=== PATIENT | female | born 2000 | race Caucasian/White ===

== ENCOUNTER → 2023-08-04 15:07 | Outpatient (BNVA) | payer OTHER, BC, SELFPAY | PROVIDERS: PCP Family Medicine; Visit Provider Family Medicine | DX: N92.6 Irregular menstruation, unspecified (principal); F98.8 Other specified behavioral and emotional disorders with onset usually occurring in childhood and adolescence; Z34.90 Encounter for supervision of normal pregnancy, unspecified, unspecified trimester | CPT/HCPCS: 81025 ==

== ENCOUNTER → 2023-08-25 15:35 | Outpatient (BNVA) | payer OTHER, BC, SELFPAY | PROVIDERS: PCP Family Medicine; Visit Provider Family Medicine | DX: Z34.90 Encounter for supervision of normal pregnancy, unspecified, unspecified trimester (principal); R53.83 Other fatigue | CPT/HCPCS: 80307; 81000; 81025; 84144; 84443; 84702; 85025; 86592; 86705; 86706; 86762; 86850; 86900; 87086; 87340; 87389; 87491; 87591; 87624; 87806 ==

== ENCOUNTER → 2023-09-23 15:04 | Outpatient (BNVA) | payer OTHER, BC, SELFPAY | PROVIDERS: PCP Family Medicine; Visit Provider Family Medicine | DX: Z34.00 Encounter for supervision of normal first pregnancy, unspecified trimester (principal); R30.0 Dysuria | CPT/HCPCS: 87086 ==

== ENCOUNTER 2023-11-10 14:27 | Outpatient (CLI) | payer OTHER, SELFPAY ==
--- NOTE | 2023-11-10 15:00 | US_ITS ---
WS: [id number] OBSTETRICAL ULTRASOUND COMPLETE HISTORY: Anatomy scan. COMPARISON: None available. Single intrauterine gestation in Cephalic presentation. Variable during the examination but cephalic at the end. Cervix is Closed and normal length. Cervical length is 3.7 cm. Normal amount of amniotic fluid surrounds the fetus. Placenta: Anterior, no previa or abruption. Placenta grade 1 Heart: 147 BPM. Four chambers are identified. RIGHT and LEFT outflow tracts are unremarkable. Anatomy: Intracranial structures and spine are normal. kidneys, stomach and urinary bladd er are unremarkable. Abdominal wall, three-vessel cord and cord insertion site are normal. 4 extremities are present. profile: Not visualized due to position. Gender: Female. measurements: BPD = 4.9 cm = 21 weeks 0-day; HC = 18.4 cm = 20 weeks 5 days; AC = 15.4 cm = 20 weeks 4 days; FL = 3.5 cm = 21 weeks 0-day; EFW: 375.5 g. 32% Biometry is internally concordant. AGA by ultrasound: 20 weeks 6 days KINGA by ultrasound: 03/23/2024 IMPRESSION: 1. Single intrauterine gestation of 20 weeks 6 days with an KINGA of 03/23/2024. 2. Unremarkable screening survey of anatomy. profile is not visualized due to posi tion. The remaining anatomy is normal.
== END 2023-11-10 14:28 | disposition home or self-care (01) ==
LOC: RAD 14:29
PROVIDERS: PCP Family Medicine; Referring Provider Family Medicine; Visit Provider Family Medicine
DX: Z34.02 Encounter for supervision of normal first pregnancy, second trimester (principal); Z3A.20 20 weeks gestation of pregnancy
CPT/HCPCS: 76805

== ENCOUNTER 2024-03-22 23:52 | Inpatient (IN) | payer BC, SELFPAY ==
[2024-03-22 23:43] VITALS: BP 133/84; PULSE 92
[2024-03-22 23:59] VITALS: BMI 22.3
[2024-03-23] VITALS (14 sets, daily range): BP systolic 107–139; BP diastolic 59–83; PULSE 59–97; RESP 16; TEMP 36.9; O2SAT 98; BMI 22.3
[2024-03-23] MEDS: lactated ringers 1,000 ML 999 ML IV (00:10)
[2024-03-23 00:16] LABS: Basophils % 0.3 %; Eosinophils # 0.1 10^3/uL (0.0-0.8); Eosinophils % 0.5 %; Hematocrit 33.6 % (36-47); Lymphocytes # 2.1 10^3/uL (0.8-4.8); Lymphocytes % 13.8 %; Mean Corpuscular HGB Conc 31.8 g/dL (30-55); Mean Corpuscular Hemoglobin 26.7 pg (27-33); Mean Corpuscular Volume 83.8 fl (85-98); Mean Platelet Volume 11.4 fL (7.4-10.4); Monocytes # 1.1 10^3/uL (0.2-0.9); Monocytes % 6.9 %; Neutrophils # 11.83 10^3/uL (1.8-7.7); Neutrophils % 77.8 %; Nucleated Red Blood Cells % 0 %; Platelet Count 248 10^3/cmm (157-399); Red Blood Count 4.01 10^6/uL (3.85-5.65); Red Cell Distribution Width 17.6 % (12.1-15.1); White Blood Count 15.18 10^3/uL (3.29-11.43)
[2024-03-23] MEDS: metoclopramide 5 mg/mL SDV 2 mL 10 MG IVP (00:18)
[2024-03-23] MEDS: citric acid-sodium citrate 30 mL UDC PO (00:18)
[2024-03-23] MEDS: famotidine 20 mg/2 mL INJ IVP (00:19)
--- NOTE | 2024-03-23 00:30 | P.ANESUD_ITS ---
Pre-Anesthetic Update Pre-Anesthetic Assessment: Date of Surgery/Procedure: 03/29/24 Preop Sangeetha gnosis: breech Proposed Procedure: Operation Date: 03/23/24 00:30 Proposed Procedures p Section(Not Applicable) - Donald Regan MD Any changes to Pre-Anesthetic Assessment?: No Last Intake: solids @1700, liquids @2300 Labs Last 48hrs: Short CBC 03/22/24 Range/Units 23:59 WBC 15.18 H (3.29-11.43) 10^ 3/uL Hgb 10.70 L (11.27-16.99) g/ dL Hct 33.6 L (36-47) % MCV 83.8 L (85-98) fl Plt Count 248 (157-399) 10^3/c mm Neut % (Auto) 77.8 % Neut # (Auto) 11.83 H (1.8-7.7) 10^3/u L Blood Bank 03/22/24 23:59 Blood Type O Positive Rho(D) Type Rh positive Vitals: Pulse Rate 97 03/23/24 00:14 Pulse Rhythm Regular 03/22/24 23:59 Pulse Strength 3+ Normal 03/22/24 23:59 Respiratory Effort Spontaneous, Non- Labored 03/22/24 23:59 Respiratory Depth Normal 03/22/24 23:59 Respiratory Patter n Normal 03/22/24 23:59 Blood Pressure 139/83 03/23/24 00:14 Oxygen Delivery Me thod Room Air 03/22/24 23:59 Exam: Pre-Anes Outpt Exam: alert, oriented x 3 and clear to auscultation bilaterally Cardiac Studies: No Data to Display
--- NOTE | 2024-03-23 00:30 | P.ANESUD_ITS ---
Pre-Anesthetic Update Pre-Anesthetic Assessment: Date of Surgery/Procedure: 03/23/24 Preop Sangeetha gnosis: breech Proposed Procedure: Operation Date: 03/23/24 00:30 Proposed Procedures p Section(Not Applicable) - Donald Regan MD Any changes to Pre-Anesthetic Assessment?: No Last Intake: liquids @2300, solids @1700 Labs Last 48hrs: Short CBC 03/22/24 Range/Units 23:59 WBC 15.18 H (3.29-11.43) 10^ 3/uL Hgb 10.70 L (11.27-16.99) g/ dL Hct 33.6 L (36-47) % MCV 83.8 L (85-98) fl Plt Count 248 (157-399) 10^3/c mm Neut % (Auto) 77.8 % Neut # (Auto) 11.83 H (1.8-7.7) 10^3/u L Blood Bank 03/22/24 23:59 Blood Type O Positive Rho(D) Type Rh positive Vitals: Pulse Rate 97 03/23/24 00:14 Pulse Rhythm Regular 03/22/24 23:59 Pulse Strength 3+ Normal 03/22/24 23:59 Respiratory Effort Spontaneous, Non- Labored 03/22/24 23:59 Respiratory Depth Normal 03/22/24 23:59 Respiratory Patter n Normal 03/22/24 23:59 Blood Pressure 139/83 03/23/24 00:14 Oxygen Delivery Me thod Room Air 03/22/24 23:59 Exam: Pre-Anes Outpt Exam: alert, oriented x 3 and clear to auscultation bilaterally Cardiac Studies: No Data to Display
[2024-03-23] MEDS: BUPivacaine 0.5% INJ 30 mL INJECTION (00:50)
--- NOTE | 2024-03-23 02:45 | P.HP_ITS ---
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 She is scheduled to have a section at 7:00 today. Her is due to having a breech presentation baby. She been having contractions intermittently throughout the last 24 hours. They began increasingly severe and as result she came in for further evaluation. She was checked by the nurses and found to be 7 cm dilated. Present Details : 1 Para: 0 Review of Systems 2 General: Reports: 10 or more systems reviewed and unremarkable except in HPI and below Const: Reports: fatigue; Denies: fever(s) Eyes: Denies: change in vision Card: Denies: chest pain Musc: Reports: back pain Topher/Lymph: Denies: easy bruising Medications/Allergies Home Medications Medication Instructions Recorded Confirmed Last Taken Type vitamins with calcium 1 tab PO DAILY #30 tabs 08/25/23 09/23/23 Unknown Rx no.72-iron 29 mg-folic acid 1 mg tablet Allergies Allergy/AdvReac Type Severity Reaction Status Date / Time No Known Allergies Allergy Verified 08/04/23 14:55 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 PFSH: Medical History Adult attention deficit disorder Acne Surgical History No pertinent past surgical history Family History Mother No significant family history Social History Smoking and tobacco/nicotine status: never used tobacco/nicotine Alcohol intake: never Substance/Drug Use: never 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[employer] - [employer] History History History 2 1 Term 0 0 Miscarriages/Ectopic 0 Living Children 0 Care KINGA Calculator 2 Estimated Delivery Date Method Current WG Current Estimate 03/22/24 Ultrasound #1 40w 1d Other Estimates 04/09/24 LMP (Uncertain) 37w 4d Vitals/I&O/Wt Last Vital Signs Pulse 97 03/23/24 00:14 BP 139/83 03/23/24 00:14 O2 Del Method Room Air 03/22/24 23:59 Weight last 48 hrs Weight 138 lb 8 oz Physical Exam 2 Const: COMMON NORMALS: patient oriented x3 and alert HENMT: COMMON NORMALS: moist oral mucous membranes HEAD & SCALP: normal to inspection Chest: COMMONS NORMALS: normal inspection of the chest Resp: COMMON NORMALS: clear to auscultation bilaterally AUSCULTATION: clear to auscultation bilaterally Cardio: COMMON NORMALS: regular rate and regular rhythm RATE: regular rate RHYTHM: regular rhythm GI: INSPECTION: Yes normal to inspection and Yes other (Gravid) Extremity: COMMON NORMALS: normal to inspection GENERAL: Yes edema (Trace) Neuro: COMMON NORMALS: patient oriented x3, moves all extremities and no sensory deficits noted SENSORIUM/ORIENTATION: Yes alert Psych: COMMON NORMALS: mental status grossly normal Skin: COMMON NORMALS: no rashes or lesions noted GENERAL SKIN EXAM: no rashes or lesions noted Urinary Catheter Management: Ely: Cath Placed During This Visit: yes Urinary Catheter Date of Insertion: 03/23/24 Urinary Catheter Time of Insertion: 00:44 Data 03/22/24 23:59 Results Labs OB ([facility]): 2 Blood Type O Positive 03/22/24 Antibody Screen Positive 03/22/24 Hct 33.6 % (36-47) L 03/22/24 Hgb 10.70 g/dL (11.27-16.99) L 03/22/24 Rho(D) Type Rh positive 03/22/24 Plt Count 248 10^3/cmm (157-399) 03/22/24 Hep Bs Antigen Non-reactive (Nonreactive) 08/25/23 Hep B Core Total Ab Non-reactive (Nonreactive) 08/25/23 Hep Bs Antibody 3.5 (11.5-1000) L 08/25/23 Rubella IgG Antibody 222.1 IU/mL (0.0-10.0) H 08/25/23 HIV 1&2 Ab & HIV 1 Ag Non-reactive (Non-Reactiv) 08/25/23 TSH 0.78 uIU/mL (0.27-4.20) 08/25/23 C.trachomatis RNA (TMA) Not detected 08/25/23 N.gonorrhoeae RNA (TMA) Not detected 08/25/23 Chlamydia/GC Comment TNP 08/25/23 Progesterone 29.94 ng/mL 08/25/23 Ser , Semi-Qnt 021631.00 mIU/mL 08/25/23 HCG, Qual Positive (Negative) H 08/25/23 Urine Opiates Screen Negative ng/mL (Negative) 08/25/23 Ur Barbiturates Screen Negative ng/mL (Negative) 08/25/23 Ur Phencyclidine Scrn Negative ng/mL (Negative) 08/25/23 Ur Amphetamines Screen Negative ng/mL (Negative) 08/25/23 U Benzodiazepines Scrn Negative ng/mL (Negative) 08/25/23 Urine Cocaine Screen Negative ng/mL (Negative) 08/25/23 U Marijuana (THC) Screen Negative ng/mL (Negative) 08/25/23 Micro Urine Specimen 09/23/23 Pap Smear Interpret See note A 08/25/23 A&P Assessment and plan (1) 40 weeks gestation of : (2) Breech presentation: The patient had decided that she would want to proceed with a section. She was scheduled to have a later in the morning. Given the dilation we will proceed with a at this time. We discussed the risks of a C- section including the risks of bleeding, infection, and damage to intra- abdominal organs. She and her have no further questions and wished to proceed. Qualifiers: Fetus number: single or unspecified fetus Qualified Code(s): O32.1XX0 - Maternal care for breech presentation, not applicable or unspecified Attestations 2 Medical Necessity Statement*: Routine and post care Coding Level of Care Code Acute Code for Chg Fwd Diagnoses 40 weeks gestation of Z3A.40 Breech presentation, single or unspecified fetus O32.1XX0 Fetus number: single or unspecified fetus
--- NOTE | 2024-03-23 02:50 | PM.OP ---
Operative Report Date of procedure: March 23, 2024 Pre-op diagnosis: 1. 23-year-old 1 at 40 weeks estimated gestational age in active labor 2. Breech presentation Post-op diagnosis: same Procedure done: Primary low-transverse section Specimens removed/disposition: 1. Female infant with a weight of 6 pounds 1 ounces and Apgars of 8 and 9 2. Placenta with a three-vessel cord delivered intact Surgeon: Donald Regan MD Complications: None Procedure: The patient was brought back to the operating room where she was prepped and draped in usual sterile fashion. Anesthesia was found to be adequate. Approximately 20 cc of 0.5% bupivacaine were used to infused the area of the incision A lower transverse skin incision was then made with a #10 blade. I then dissected down to the underlying subcutaneous tissue until arriving at the prerectal fascia. The fascia was then nicked with the scalpel bilaterally. The fascial incisions were then carried laterally with Boykin scissors. Attention was then turned to the superior aspect of the incision which was grasped with kochers and tented up away from the underlying rectus abdominis muscles. The muscles were then dissected away from the fascia manually, and later with Boykin scissors. Attention was then turned to the inferior aspect of the incision, and the fascia was dissected away from the underlying muscle in similar fashion. The rectus abdominis muscles were then spread manually. The peritoneum was entered manually. Excellent visualization of the uterus was noted. A lower transverse uterine incision was then made with a #10 blade. Upon arriving at the intrauterine cavity, the uterine incision was then extended manually. The infant was noted to be in arnold breech position. The baby was delivered without difficulty. After delivery of the head, the mouth and nose were suctioned at the site of the incision. There was terminal meconium only. There was no nuchal cord. The remainder of the body was then delivered and placed on the abdomen. The cord was cut and clamped. The baby was then handed to the waiting nurse. The placenta was removed intact. The uterus was externalized. The intrauterine cavity was cleansed of any remaining debris. The uterine incision was reapproximated in 2 layers. The first layer was performed with 0 Vicryl in a running locked stitch. The second layer was an imbricating stitch also using 0 Vicryl. The uterus was replaced into the abdomen. The peritoneum was then irrigated with warm saline. I reexamined the uterine incision and found it to be hemostatic. The rectus abdominis muscles were then reapproximated using 0 Vicryl in a running stitch. The fascia was then reapproximated using 0 Vicryl in running stitch. The skin was reapproximated using solitario. A sterile dressing was placed. All counts were correct x2. Both the mother and baby were in stable condition.
[2024-03-23] MEDS: ketorolac 30 mg/mL INJ IVP ×3 (07:26→20:26)
[2024-03-23] MEDS: dextrose 5%-lactated ringers 1,000 ML 125 ML IV (07:34)
--- NOTE | 2024-03-23 07:49 | PC.NURSE ---
PT WAS PLACED ON FLYING CART, FLYING CART [facility]30. RN AT BEDSIDE EVERY 15 MINUTES. VITALS OBSERVED DURING THIS TIME, VITALS WERE WITHIN NORMAL LIMITS
[2024-03-23] MEDS: sodium chloride 0.9% 500 ML 999 ML IV ×3 (08:51→11:22)
[2024-03-23] MEDS: PRENATAL VIT NO.130/IRON/FOLIC 1 EACH TABLET PO (08:51)
[2024-03-23] MEDS: docusate sodium 100 mg Capsule PO ×2 (08:51→20:27)
[2024-03-23 14:37] LABS: Hematocrit 28.8 % (36-47); Mean Corpuscular HGB Conc 31.9 g/dL (30-55); Mean Corpuscular Hemoglobin 27.5 pg (27-33); Mean Platelet Volume 11.2 fL (7.4-10.4); Platelet Count 172 10^3/cmm (157-399); Red Blood Count 3.35 10^6/uL (3.85-5.65); Red Cell Distribution Width 17.7 % (12.1-15.1); White Blood Count 17.15 10^3/uL (3.29-11.43)
[2024-03-24] MEDS: HYDROcodone-acetaminophen 5-325 mg Tablet PO ×2 (02:52→09:11)
[2024-03-24 04:32] VITALS: BP 106/67; PULSE 72; RESP 16; TEMP 36.8; O2SAT 98
[2024-03-24 06:00] VITALS: BMI 22.3
--- NOTE | 2024-03-24 08:25 | PM.OBGYDC ---
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 She was noted to have a breech presentation baby and was scheduled to have a later on the same day. As result she was brought back for a . The was unremarkable. Her course was unremarkable. She was passing gas within hours of the . Her diet was advanced and she tolerated it well. Her bleeding was light. Her pain was well-controlled. There were no concerns. Information Peripartum Data: Delivery Method: Physical Exam Narrative: She is in no acute distress Lungs are clear auscultation bilaterally Her heart has a regular rate and rhythm Her fundus is below the umbilicus and firm Her dressing is clean, dry and intact Her extremities have trace edema Urinary Catheter Management: Ely: Cath Placed During This Visit: yes, but has since been removed by the nurse Reason for Continuing Indwelling Catheter: Decision to DC Catheter Urinary Catheter Date of Insertion: 03/23/24 Urinary Catheter Time of Insertion: 00:44 Date Urinary Catheter Removed: 03/23/24 Time Urinary Catheter Discontinued: 16:54 History History History 1 Term 0 0 Miscarriages/Ectopic 0 Living Children 0 Discharge Data Studies Completed and Pending Laboratory Results WBC 17.15 10^3/uL (3.29-11.43) H 03/23/24 14:30 RBC 3.35 10^6/uL (3.85-5.65) L 03/23/24 14:30 Hgb 9.20 g/dL (11.27-16.99) L 03/23/24 14:30 Hct 28.8 % (36-47) L 03/23/24 14:30 MCV 86.0 fl (85-98) 03/23/24 14:30 MCH 27.5 pg (27-33) 03/23/24 14:30 MCHC 31.9 g/dL (30-55) 03/23/24 14:30 RDW 17.7 % (12.1-15.1) H 03/23/24 14:30 Plt Count 172 10^3/cmm (157-399) D 03/23/24 14:30 MPV 11.2 fL (7.4-10.4) H 03/23/24 14:30 Neut % (Auto) 77.8 % 03/22/24 23:59 Lymph % (Auto) 13.8 % 03/22/24 23:59 [place] % (Auto) 6.9 % 03/22/24 23:59 Eos % (Auto) 0.5 % 03/22/24 23:59 Baso % (Auto) 0.3 % 03/22/24 23:59 Neut # (Auto) 11.83 10^3/uL (1.8-7.7) H 03/22/24 23:59 Lymph # (Auto) 2.1 10^3/uL (0.8-4.8) 03/22/24 23:59 [place] # (Auto) 1.1 10^3/uL (0.2-0.9) H 03/22/24 23:59 Eos # (Auto) 0.1 10^3/uL (0.0-0.8) 03/22/24 23:59 Baso # (Auto) 0.0 10^3/uL (0.0-0.1) 03/22/24 23:59 Nucleated RBC % (auto) 0 % 03/22/24 23:59 Nucleated RBCs # 0.0 /100WBC 03/22/24 23:59 Blood Type O Positive 03/23/24 04:07 Rho(D) Type Rh positive 03/23/24 04:07 Antibody Screen Negative 03/23/24 04:07 Antibody Identification Cancelled 03/22/24 23:59 Vitals Last Vital Signs Temp 98.3 F 03/24/24 04:32 Pulse 72 03/24/24 04:32 Resp 16 03/24/24 04:32 BP 106/67 03/24/24 04:32 Pulse Ox 98 03/24/24 04:32 O2 Del Method Room Air 03/24/24 04:32 Results Labs OB ([facility]): Blood Type O Positive 03/23/24 Antibody Screen Negative 03/23/24 Hct 28.8 % (36-47) L 03/23/24 Hgb 9.20 g/dL (11.27-16.99) L 03/23/24 Rho(D) Type Rh positive 03/23/24 Plt Count 172 10^3/cmm (157-399) 03/23/24 Hep Bs Antigen Non-reactive (Nonreactive) 08/25/23 Hep B Core Total Ab Non-reactive (Nonreactive) 08/25/23 Hep Bs Antibody 3.5 (11.5-1000) L 08/25/23 Rubella IgG Antibody 222.1 IU/mL (0.0-10.0) H 08/25/23 HIV 1&2 Ab & HIV 1 Ag Non-reactive (Non-Reactiv) 08/25/23 TSH 0.78 uIU/mL (0.27-4.20) 08/25/23 C.trachomatis RNA (TMA) Not detected 08/25/23 N.gonorrhoeae RNA (TMA) Not detected 08/25/23 Chlamydia/GC Comment TNP 08/25/23 Progesterone 29.94 ng/mL 08/25/23 Ser , Semi-Qnt 945710.00 mIU/mL 08/25/23 HCG, Qual Positive (Negative) H 08/25/23 Urine Opiates Screen Negative ng/mL (Negative) 08/25/23 Ur Barbiturates Screen Negative ng/mL (Negative) 08/25/23 Ur Phencyclidine Scrn Negative ng/mL (Negative) 08/25/23 Ur Amphetamines Screen Negative ng/mL (Negative) 08/25/23 U Benzodiazepines Scrn Negative ng/mL (Negative) 08/25/23 Urine Cocaine Screen Negative ng/mL (Negative) 08/25/23 U Marijuana (THC) Screen Negative ng/mL (Negative) 08/25/23 Micro Urine Specimen 09/23/23 Pap Smear Interpret See note A 08/25/23 Discharge Plan Discharge Patient Disposition: Home Condition: Stable Prescriptions: New docusate sodium 100 mg Capsule 100 mg PO BID Qty: 14 0RF ibuprofen 800 mg Tablet 800 mg PO TID Qty: 45 0RF hydrocodone-acetaminophen 5-325 mg Tablet 1 tab PO Q6H PRN (Reason: Moderate To Severe Pain) Qty: 28 0RF Continued PNV,calcium 72-iron,carb-folic 29 mg iron- 1 mg tablet 1 tab PO DAILY Qty: 30 9RF Discharge Orders: Discharge Order (Routine); Ordered 03/24/24 Ordered By: Donald Regan Referrals: Donald Regan MD [Physician] - 6 Weeks Luciana Hooks MD [Physician] - 4-7 days Discharge Diet: Usual diet Discharge Activity: Limit activity as instructed Patient Instructions: Opioid Safety Discharge 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
[2024-03-24] MEDS: PRENATAL VIT NO.130/IRON/FOLIC 1 EACH TABLET PO (09:11)
[2024-03-24] MEDS: ferrous sulfate EC 325 mg Tablet PO (09:12)
[2024-03-24] MEDS: docusate sodium 100 mg Capsule PO (09:12)
[2024-03-24 09:13] VITALS: BP 104/58; PULSE 84
[2024-03-24 09:15] VITALS: BP 104/58; PULSE 84
[2024-03-24 11:41] VITALS: BP 113/63; PULSE 71
[2024-03-24 12:00] VITALS: TEMP 36.8
[2024-03-24 12:14] VITALS: BP 113/63; PULSE 71; RESP 17; TEMP 36.8
== END 2024-03-24 12:14 | disposition home or self-care (01) | DRG 788 ==
LOC: OPOB 03-23 07:53 → OBGYN 03-23 07:53
PROVIDERS: Admitting Provider Family Medicine; PCP Family Medicine; Visit Provider Family Medicine
PROC: 10D00Z1 Extraction of Products of Conception, Low, Open Approach (ICD-10-PCS; CPT 59514; principal; 2024-03-23 00:30)
DX: O32.1XX0 Maternal care for breech presentation, not applicable or unspecified (principal); O48.0 Post-term pregnancy; Z3A.40 40 weeks gestation of pregnancy; O77.0 Labor and delivery complicated by meconium in amniotic fluid; Z37.0 Single live birth
CPT/HCPCS: 36415; 51702; 59025; 59409; 85025; 85027; 86850; 86900; 96374; 99211; J1885; J2765; J3490; J7040; J7120; J7121